=== PATIENT | male | born 1990 | race Caucasian/White ===

== ENCOUNTER → 2020-03-26 | Outpatient (CLI) | payer BC ==
--- NOTE | 2020-03-26 13:33 | KCIC ---
EXAM: XR CHEST 2V 03/26/2020 10:20 AM CLINICAL INDICATION: Persistent cough for one. COMPARISON: None TECHNIQUE: PA and lateral views of the chest FINDINGS: The heart and mediastinum are normal. Lungs are well-expanded and clear. No consolidatio n, pleural effusion, or pneumothorax. Pulmonary vascularity is normal. The thoracic skeleton is int act. IMPRESSION: Normal chest radiograph. Electronically signed by: Ashley Solares MD (03/26/2020 12:27 PM) [id number]
== END ==
LOC: KCIC 10:15
PROVIDERS: ATTEND Internal Medicine Pulmonary Disease
DX: R05 Cough (principal)
CPT/HCPCS: 71046